=== PATIENT | male | born 1935 | race Caucasian/White ===

== ENCOUNTER 2019-03-25 06:38 | Day surgery (SDC) | payer MEDICARE, BC ==
[2019-03-18 11:49] LABS: BASOPHILS % (AUTO) 0.4 % (0-1); EOSINOPHILS # (AUTO) 0.1 X10'3 (0-0.9); EOSINOPHILS % (AUTO) 2.6 % (0-6); LYMPHOCYTES # (AUTO) 1.4 X10'3 (1.1-4.8); LYMPHOCYTES % (AUTO) 26.5 % (21-51); MEAN CORPUSCULAR HEMOGLOBIN 32.1 PG (27.0-31.0); MEAN CORPUSCULAR HGB CONC 33.6 g/dL (33.0-36.5); MEAN CORPUSCULAR VOLUME 95.5 FL (78-98); MEAN PLATELET VOLUME 9.8 FL (7.4-10.4); MONOCYTES # (AUTO) 0.6 X10'3 (0-0.9); MONOCYTES % (AUTO) 10.5 % (2-12); NEUTROPHILS # (AUTO) 3.3 X10'3 (1.8-7.7); PRE OP HEMATOCRIT 42.4 % (42.0-52.0); PRE OP HEMOGLOBIN 14.3 g/dL (14.0-17.9); PRE OP PLATELET COUNT 150 X10'3 (140-440); RED BLOOD COUNT 4.44 X10'6 (4.70-6.10); RED CELL DISTRIBUTION WIDTH 14.4 % (11.5-14.5)
[2019-03-18 11:55] LABS: ALBUMIN 3.2 G/DL (3.4-5.0); ALBUMIN/GLOBULIN RATIO 0.9 (1.1-1.5); ALKALINE PHOSPHATASE 73 IU/L (46-116); BLOOD UREA NITROGEN 15 MG/DL (7-18); BUN/CREATININE RATIO 16.7 (5.4-32.0); CALCIUM 9.2 MG/DL (8.5-10.1); CHLORIDE 108 MMOL/L (99-107); PRE OP ALT 23 U/L (30-65); PRE OP ANION GAP 12 (8-16); PRE OP AST 29 U/L (10-37); PRE OP BILIRUB, TOTAL 0.7 MG/DL (0.0-1.0); PRE OP GLUCOSE 115 MG/DL (70-104); PRE OP POTASSIUM 4.2 MMOL/L (3.4-5.1); PRE OP SODIUM 143 MMOL/L (135-145); TOTAL CARBON DIOXIDE 23.5 MMOL/L (24-32); TOTAL PROTEIN 6.6 G/DL (6.4-8.2); eGFR 81 ML/MIN
[~2019-03-25] VITALS: Ht 175.3 cm; Wt 122.5 kg
[~2019-03-25 06:38] MED LIST: ATOR40TA PO; CYAN100019 PO; FESO8TAB PO; FISH12002 PO; FLO0.4C PO; METF-436 PO; METO-292 PO; PANT-47 PO; PIOG15TA8 PO; TEST75GE TOP; TRANSFER FACTOR PO; XAL0.005OS EACHEYE; cefazolin/dext.iso 2gm/100 ML IV ONE; famotidine 20mg tablet PO ONE; ringers solution, lacted 1,000 ML IV SCH
[2019-03-25 06:55] VITALS: BP 124/73
[2019-03-25] MEDS ORDERED: LIDOcaine 0.5% (5mg/ml) 50ml vial ONE (07:09)
[2019-03-25] MEDS ORDERED: LIDOcaine 1% (10mg/ml) 2ml vial ONE (07:29)
[2019-03-25] MEDS ORDERED: ringers solution, lacted 1,000 ML IV SCH (08:15)
[2019-03-25] MEDS ORDERED: morphine 4 MG/ML inj SYRINge IV PRN ×2 (08:15)
[2019-03-25] MEDS ORDERED: ondansetron/PF 4mg/2ml inj IV PRN (08:15)
[2019-03-25] MEDS ORDERED: meperidine/PF 25mg/ml syringe IV PRN ×3 (08:15)
[2019-03-25] MEDS ORDERED: proCHLORperazine 10 MG/2 ml inj IV PRN (08:15)
[2019-03-25] MEDS ORDERED: BUPIVAcaine/PF 2.5mg/ml (0.25%) 10ml vial ONE (08:43)
[2019-03-25] MEDS ORDERED: propofol 10mg/ml 20ml vial IV ONE (08:54)
[2019-03-25] MEDS ORDERED: fentaNYL/PF 50MCG/1 ML 2ML syringe ONE (08:56)
[2019-03-25] MEDS ORDERED: midazolam 2 mg/2 ml injection ONE (08:56)
[2019-03-25 09:20] VITALS: BP 120/56
--- NOTE | 2019-03-25 09:20 | NUR ---
Received from OR via , accompanied by Anesthesiologist DR LAFLEUR and report given by Anesthesiolgist. AWAKE AND JUAN PAIN. VITALS STABLE. DRESSING DI. FINGERS WARM AND PINK.
[2019-03-25 09:30] VITALS: BP 117/97
[2019-03-25 09:40] VITALS: BP 129/61
[2019-03-25 09:50] VITALS: BP 125/66
--- NOTE | 2019-03-25 10:00 | NUR ---
AWAKE AND ORIENTED. VITALS STABLE. SPLINT DI. JUAN PAIN. HOME WITH HIS AT THIS TIME.
== END 2019-03-25 10:00 | disposition home or self-care (01) ==
LOC: PAS 06:38
PROVIDERS: ATTEND Orthopaedic Surgery Hand Surgery
DX: M65.4 Radial styloid tenosynovitis [de Quervain] (principal); M18.12 Unilateral primary osteoarthritis of first carpometacarpal joint, left hand; I10 Essential (primary) hypertension; N40.0 Benign prostatic hyperplasia without lower urinary tract symptoms; K21.9 Gastro-esophageal reflux disease without esophagitis; E78.5 Hyperlipidemia, unspecified; E11.39 Type 2 diabetes mellitus with other diabetic ophthalmic complication; H42 Glaucoma in diseases classified elsewhere; E66.9 Obesity, unspecified; Z68.41 Body mass index [BMI] 40.0-44.9, adult; Z79.84 Long term (current) use of oral hypoglycemic drugs; Z79.899 Other long term (current) drug therapy; Z96.641 Presence of right artificial hip joint; Z98.890 Other specified postprocedural states; Z87.891 Personal history of nicotine dependence; Z72.89 Other problems related to lifestyle; Z96.653 Presence of artificial knee joint, bilateral
CPT/HCPCS: 25000; 36415; 80053; 82948; 85025; 93005; J2001; J2250; J2704; J3010; J3490; A4215; J7120

== ENCOUNTER 2023-08-22 08:12 | Emergency (ER) | payer MEDICARE, BC ==
[~2023-08-22] VITALS: Ht 172.7 cm; Wt 101.8 kg
[~2023-08-22 08:12] MED LIST changes: -cefazolin/dext.iso 2gm/100 ML IV ONE; -famotidine 20mg tablet PO ONE; -ringers solution, lacted 1,000 ML IV SCH
[2023-08-22 08:28] VITALS: TEMP 98
[2023-08-22 08:37] VITALS: BP 137/74; PULSE 74; RESP 18; O2SAT 96
== END 2023-08-22 09:35 | disposition home or self-care (01) ==
LOC: ER 08:12
DX: Z46.6 Encounter for fitting and adjustment of urinary device (principal); N40.0 Benign prostatic hyperplasia without lower urinary tract symptoms; Z79.899 Other long term (current) drug therapy; Z91.013 Allergy to seafood
CPT/HCPCS: 99281

== ENCOUNTER 2023-08-22 16:47 | Emergency (ER) | payer MEDICARE, BC ==
[~2023-08-22] VITALS: Ht 172.7 cm; Wt 100.0 kg
[2023-08-22 16:49] VITALS: BP 156/78; PULSE 85; RESP 16; TEMP 98.6; O2SAT 96
[2023-08-22] MEDS: LidoCAINE 2% Topical Jelly 11mL syringe (UROJET) TOP ONE (17:18)
== END 2023-08-22 18:00 | disposition home or self-care (01) ==
LOC: ER 16:48
DX: N13.9 Obstructive and reflux uropathy, unspecified (principal); Z79.899 Other long term (current) drug therapy
CPT/HCPCS: 51702; 99284; A4314

== ENCOUNTER 2025-04-10 08:25 | Emergency (ER) | payer MEDICARE, BC ==
[~2025-04-10] VITALS: Ht 172.7 cm; Wt 107.0 kg
[~2025-04-10 08:25] MED LIST changes: -FLO0.4C PO; +TAMS-55 PO; -TEST75GE TOP; +[UNRECOGNIZED DRUG - CODE] TOP
[2025-04-10 08:26] VITALS: TEMP 98
--- NOTE | 2025-04-10 08:49 | Physician Documentation ---
History of Present Illness ~ Chief Complaint: Wound Re-Check Stated Complaint: SKIN TARE L HAND Time Seen by MD: 08:39 Mode of Arrival: POV HPI 89 year old male presents as a follow up and wound check on his left upper extremity. 1 week ago pt injured his hand while moving furniture and scraped his hand on a tailgate. Initially Dermabond was used to close the skin tear. However patient's symptoms worsened in on Thursday he was seen in urgent care where he was placed on Keflex. Had three days of antibiotics however he has worsening symptoms increased drainage pain and swelling denies any fever. Day of Onset of Wound: Apr 10, 2025 Tetanus within 5 years?: Yes Medication Reconciliation Allergies: Coded Allergies: No Known Drug Allergies (Verified Allergy, Unknown, 03/24/19) Scheduled Atorvastatin Calcium* (Lipitor*), 0.5 TABLET PO HS, (Reported) Cyanocobalamin (Vitamin B-12) (Vitamin B-12), 2.5 TABLET PO DAILY, (Reported) Fesoterodine Fumarate (Toviaz), 1 TAB PO DAILY, (Reported) Fish Oil/Borage/Flax/Om3,6,9#1 ([place] 3-6-9 1,200 mg Softgel), 1,000 MG PO HS, (Reported) Metformin Hcl (Metformin Hcl), 2 TAB PO Q12H, (Reported) Metoclopramide HCl (Reglan), 0.5 TAB PO BID, (Reported) Pantoprazole Sodium (PROTONIX tablet), 1 TAB PO DAILY, (Reported) Pioglitazone Hcl* (Actos*), 45 MG PO DAILY, (Reported) Sulfamethoxazole/Trimethoprim (Septra Ds Tab), 1 TAB PO Q12H Tamsulosin Hcl* (Flomax*), 1 CAP PO BID, (Reported) Testosterone (Androgel), 40.5 MG TOP DAILY, (Reported) [Transfer Factor ], 300 MG PO DAILY, (Reported) Miscellaneous Medications Latanoprost (XALATAN ophth drops), 1 DROP EACHEYE, (Reported) Past Medical History Past Medical History: No Pertinent History, BPH Past Surgical History: other Lives with: Spouse Lives In: Home Occupation: retired Review of Systems All Other Systems at this time: Reviewed and Negative ROS As stated above in the HPI, otherwise all systems are reviewed and negative. Physical Exam Vital Signs: Temperature: 98.0, Source: Oral, Heart Rate: 75, Respiratory Rate: 16, BP: 157/76, Pulse Oximetry: 96, Weight: 107.000 Oxygen Flow Rate: 0 Physical Exam General: Alert, no apparent distress. Extremities: Normal range of motion, no deformity. Cm laceration on the posterior aspect of patient's left hand with surrounding erythema and notable drainage, negative [place] signs Neurologic: Oriented x4. Psychiatric: Normal mood and affect. Skin: Normal color, warm and dry. No edema, no ecchymosis. Progress Results/Orders Results/Orders Vital Signs 04/10/25 08:26 Temp 98.0 Pulse 75 Resp 16 B/P (MAP) 157/76 Pulse Ox 96 O2 Flow Rate 0 Medical Decision Making Additional information obtaine: N/A Findings Affect this patient did not get a broad enough coverage based on Keflex being hi s initial antibiotic regimen. I am going to advise him to take Bactrim addition to his current regimen. The main take away I wanted the patient to understand was that if his symptoms worsening he is to return to the ED for potential wash- out Differential Dx:Considerations: Include: Abscess, Cellulitis, Dressing change, Healing wound, Other Departure Disposition: 01 HOME / SELF CARE / HOMELESS Impression: Primary Impression: Cellulitis Condition: Stable Discharge Instructions: Wound Closure Removal, Care After Referrals: NO PRIMARY CARE PROVIDER (PCP) Prescriptions Sulfamethoxazole/Trimethoprim (Septra Ds Tab) 800 Mg/160 Mg Tablet 1 TAB PO Q12H for 10 Days, #20 TAB Prov: EBEN HOSKINS NP 04/10/25 Education Educated: Patient Educated regarding: diagnosis Signature Scribe Signature: g Attestation: Scribed for Eben Hoskins Brush Holder Inspector by Eben Desai NP . 04/10/25 09:02 EBEN HOSKINS NP Apr 10, 2025 08:49
[2025-04-10] MEDS ORDERED: SULF1TAB45 PO (09:03)
[2025-04-10 09:10] VITALS: BP 121/74; PULSE 77; RESP 20; O2SAT 94
== END 2025-04-10 09:15 | disposition home or self-care (01) ==
LOC: ER 08:25
DX: S61.412D Laceration without foreign body of left hand, subsequent encounter (principal); L03.114 Cellulitis of left upper limb; Z79.899 Other long term (current) drug therapy; X58.XXXD Exposure to other specified factors, subsequent encounter
CPT/HCPCS: 99283; A6258; A6402; A6449